=== PATIENT | female | born 1980 | race Caucasian/White ===

== ENCOUNTER 2016-10-24 13:59 | Emergency (ER) | payer OTHER ==
[2016-10-24 14:10] VITALS: RESP 16; TEMP 97.9
--- NOTE | 2016-10-24 15:09 | CPEKG ---
Heart Rate: 66 RR Interval: 909 P-R Interval: 164 QRSD Interval: 80 QT Interval: 388 QTC Interval: 407 P [place]: 47 QRS [place]: 62 T Wave [place]: 33 EKG Severity - BORDERLINE ECG - EKG Impression: SINUS RHYTHM EKG Impression: PROBABLE LEFT ATRIAL ABNORMALITY Electronically Signed By: Marco A Ward 24-Oct-2016 16:04:01
--- NOTE | 2016-10-24 16:02 | EDPHY ---
H & P Stated Complaint: dizziness/?vertigo x 3 days-sent from Time Seen by Provider: 10/24/16 15:40 HPI/ROS: CHIEF COMPLAINT: Vertigo HISTORY OF PRESENT ILLNESS: The patient is a 36-year-old female who comes to the emergency department complaining of vertigo. She states that her symptoms began yesterday and have been moderate and intermittent. There worsened by head turning. It started while she was cleaning a house. She particularly notices that when she stands up and tries to turn her head. Occasionally though while lying in bed last night it was happening and making it hard to sleep. She has not felt nauseous and has not vomited. She denies any trauma. She denies any fevers. She denies any chest pain or palpitations. She was seen today at urgent care and had a positive Hallpike maneuver to the left and several Darrell maneuvers were attempted but ultimately unsuccessful. She has not had any recent sinus infections. symptoms have improved now compared to earlier today. She was sent here for meclizine, EKG and lab work. REVIEW OF SYSTEMS: Constitutional: denies: chills, fever, recent illness, recent injury EENTM: denies: blurred vision, double vision, nose congestion Respiratory: denies: cough, shortness of breath Cardiac: denies: chest pain, irregular heart rate, lightheadedness, palpitations Gastrointestinal/Abdominal: denies: abdominal pain, diarrhea, nausea, vomiting, blood streaked stools Genitourinary: denies: dysuria, frequency, hematuria, pain Musculoskeletal: denies: joint pain, muscle pain Skin: denies: lesions, rash, jaundice, bruising Neurological: See HPI, denies: headache, numbness, paresthesia, tingling, weakness Hematologic/Lymphatic: denies: blood clots, easy bleeding, easy bruising Immunologic/allergic: denies: HIV/AIDS, transplant EXAM: GENERAL: Well-appearing, well-nourished and in no acute distress. HEAD: Atraumatic, normocephalic. EYES: Pupils equal round and reactive to light, extraocular movements intact, sclera anicteric, conjunctiva are normal. No visible nystagmus ENT: TMs normal, nares patent, oropharynx clear without exudates. Moist mucous membranes. NECK: Normal range of motion, supple without lymphadenopathy or JVD. LUNGS: Breath sounds clear to auscultation bilaterally and equal. No wheezes rales or rhonchi. HEART: Regular rate and rhythm without murmurs, rubs or gallops. ABDOMEN: Soft, nontender, normoactive bowel sounds. No guarding, no rebound. No masses appreciated. BACK: No CVA tenderness, no spinal tenderness, step-offs or deformities EXTREMITIES: Normal range of motion, no pitting or edema. No clubbing or cyanosis. NEUROLOGICAL: Cranial nerves II through XII grossly intact. Normal speech, normal gait. 5/5 strength, normal movement in all extremities, normal sensation , normal cerebellar exam, no pronator drift, no nystagmus seen with Darrell maneuver. The patient's symptoms have seemed to improved in general PSYCH: Normal mood, normal affect. SKIN: Warm, dry, normal turgor, no visible rashes or lesions. Source: Patient Exam Limitations: No limitations - Personal History LMP (Females 10-55): Hysterectomy Current Tetanus/Diphtheria Vaccine: Unsure Current Tetanus Diphtheria and Acellular Pertussis (TDAP): Unsure - Medical/Surgical History Hx Asthma: No Hx Chronic Respiratory Disease: No Hx Diabetes: No Hx Cardiac Disease: No Hx Renal Disease: No Hx Cirrhosis: No Hx Alcoholism: No Hx HIV/AIDS: No Hx Splenectomy or Spleen Trauma: No Other PMH: depression - Family History Significant Family History: No pertinent family hx - Social History Smoking Status: Never smoked Alcohol Use: Sober Drug Use: None Constitutional: Initial Vital Signs Temperature (C) 36.6 C 10/24/16 14:07 Heart Rate 73 10/24/16 14:07 Respiratory Rate 16 10/24/16 14:07 Blood Pressure 102/64 10/24/16 14:07 O2 Sat (%) 95 10/24/16 14:07 O2 Delivery Mode Room Air Allergies/Adverse Reactions: acetaminophen [From Percocet] Allergy (Verified 10/24/16 14:06) oxycodone HCl [From Percocet] Allergy (Verified 10/24/16 14:06) penicillin G Allergy (Verified 10/24/16 14:06) Home Medications: Medication Instructions Recorded Lexapro 10/24/16 Meclizine HCl [Meclizine HCl 25 mg 25 mg PO BID PRN #20 tab 01/21/17 (RX,OTC)] Topiramate 10/24/16 Medical Decision Making - Diagnostics EKG Interpretation: An EKG obtained and was read and documented in trace view. Please see trace view for full reading and report. Sinus rhythm, no acute ischemic changes ED Course/Re-evaluation: Patient has normal orthostatic vital signs. We will treat with meclizine and obtain lab work and EKG. 5:20 p.m. the patient is feeling better. She is eager to go. She declines further observation or testing. I will have her follow up with ENT and prescribe her meclizine. She still has mild symptoms. We discussed indications for returning. Additional verbal discharge instructions given. Differential Diagnosis: Partial list of the Differential diagnosis considered include but were not limited to; vertigo, dehydration, arrhythmia, anemia and although unlikely based on the history and physical exam, I also considered acute coronary disease , CVA, infection, trauma, intoxication. I discussed these differential diagnoses and the plan with the patient as well as the usual and expected course. The patient understands that the diagnosis is provisional and that in medicine we are not always correct and that further workup is often warranted. Usual and customary warnings were given. All of the patient's questions were answered. The patient was instructed to return to the emergency department should the symptoms at all worsen or return, otherwise to followup with the physician as we discussed. - Data Points Laboratory Results: Laboratory Results 10/24/16 16:00 10/24/16 16:00 10/24/16 16:00 WBC 6.22 10^3/uL (3.80-9.50) RBC 5.06 10^6/uL (4.18-5.33) Hgb 15.1 g/dL (12.6-16.3) Hct 43.2 % (38.0-47.0) MCV 85.4 fL (81.5-99.8) MCH 29.8 pg (27.9-34.1) MCHC 35.0 g/dL (32.4-36.7) RDW 12.1 % (11.5-15.2) Plt Count 233 10^3/uL (150-400) MPV 9.2 fL (8.7-11.7) Neut % (Auto) 53.4 % (39.3-74.2) Lymph % (Auto) 37.6 % (15.0-45.0) [place] % (Auto) 6.6 % (4.5-13.0) Eos % (Auto) 1.6 % (0.6-7.6) Baso % (Auto) 0.6 % (0.3-1.7) Nucleat RBC Rel Count 0.0 % (0.0-0.2) Absolute Neuts (auto) 3.32 10^3/uL (1.70-6.50) Absolute Lymphs (auto) 2.34 10^3/uL (1.00-3.00) Absolute Monos (auto) 0.41 10^3/uL (0.30-0.80) Absolute Eos (auto) 0.10 10^3/uL (0.03-0.40) Absolute Basos (auto) 0.04 10^3/uL (0.02-0.10) Absolute Nucleated RBC 0.00 10^3/uL (0-0.01) Immature Gran % 0.2 % (0.0-1.1) Immature Gran # 0.01 10^3/uL (0.00-0.10) Sodium 139 mEq/L (134-144) Potassium 4.2 mEq/L (3.5-5.2) Chloride 106 mEq/L (97-110) Carbon Dioxide 24 mEq/l (22-31) Anion Gap 9 mEq/L (8-16) BUN 9 mg/dL (7-23) Creatinine 0.7 mg/dL (0.6-1.0) Estimated GFR > 60 Glucose 89 mg/dL (70-100) Calcium 8.8 mg/dL (8.5-10.4) Medications Given: Discontinued Medications Meclizine HCl (Meclizine Hcl) 50 mg PO EDNOW ONE Stop: 10/24/16 16:26 Last Admin: 10/24/16 16:30 Dose: 50 mg Departure - Departure Disposition: Home, Routine, Self-Care Clinical Impression: Benign positional vertigo Qualifiers: Laterality: left Qualifier Code: (H81.12) Benign paroxysmal vertigo, left ear Condition: Fair Instructions: Benign Paroxysmal Positional Vertigo (ED) Referrals: Lizzy Colindres MD [Primary Care Provider] - As per Instructions Jerardo Laura MD [Medical Doctor] - As per Instructions Prescriptions: Meclizine HCl [Meclizine HCl 25 mg (RX,OTC)] 25 mg PO BID PRN #20 tab PRN Reason: Dizziness
[2016-10-24 16:22] LABS: % IMMATURE GRANULYOCYTES 0.2 % (0.0-1.1); ABSOLUTE IMMATURE GRANULOCYTES 0.01 10^3/uL (0.00-0.10); ADD DIFF? NO; ADD MORPH? NO; ADD SCAN? NO; ATYPICAL LYMPHOCYTE FLAG 0 (0-99); FRAGMENT RBC FLAG 0 (0-99); HEMATOCRIT 43.2 % (38.0-47.0); HEMOGLOBIN 15.1 g/dL (12.6-16.3); LEFT SHIFT FLG 0 (0-99); LIPEMIA HEMOLYSIS FLAG 90 (0-99); MEAN CELL HEMOGLOBIN 29.8 pg (27.9-34.1); MEAN CELL VOLUME 85.4 fL (81.5-99.8); MEAN PLATELET VOLUME 9.2 fL (8.7-11.7); PLATELET CLUMPS FLAG 0 (0-99); PLATELET COUNT 233 10^3/uL (150-400); RED BLOOD CELL COUNT 5.06 10^6/uL (4.18-5.33); RED CELL DISTRIBUTION WIDTH 12.1 % (11.5-15.2)
[2016-10-24] MEDS ORDERED: MECLIZINE HCL 25 MG TAB PO ONE (16:25)
[2016-10-24 16:49] LABS: ANION GAP 9 mEq/L (8-16); CALCIUM 8.8 mg/dL (8.5-10.4); CARBON DIOXIDE 24 mEq/l (22-31); CHLORIDE 106 mEq/L (97-110); CREATININE 0.7 mg/dL (0.6-1.0); GLOMERULAR FILTRATION RATE > 60; GLUCOSE 89 mg/dL (70-100); POTASSIUM 4.2 mEq/L (3.5-5.2); SODIUM 139 mEq/L (134-144)
[2016-10-24 17:34] VITALS: BP 100/65; PULSE 74; O2SAT 97
== END 2016-10-24 17:42 | disposition home or self-care (01) ==
DX: H81.12 Benign paroxysmal vertigo, left ear (principal)